=== PATIENT | female | born 1975 | race Caucasian/White ===

== ENCOUNTER → 2022-08-21 | Outpatient (CLI) | payer MEDICARE, SELFPAY ==
[2022-08-21 16:50] LABS: Absolute Lymphocyte Count 3.79 X10^3/uL (0.83-4.51); Absolute Neutrophil Count 5.6 X10^3/uL (2.0-7.7); Basophil# 0.06 X10^3/uL; Basophil% 0.6 % (0-1); Eosinophil# 0.17 X10^3/uL; Eosinophils% 1.6 % (0-5); Hematocrit 46.7 % (37-47); Hemoglobin 15.2 g/dL (12.0-15.0); Lymphocyte # 3.79 X10^3/ul (0.83-4.51); Mean Corp Hgb Conc 32.5 g/dL (32-36); Mean Corpuscular Hgb 28.8 pg (27.0-32.0); Mean Corpuscular Volume 88.6 fL (81-99); Mean Platelet Vol. 10.6 fl (6.2-12.0); Monocyte# 0.85 X10^3/uL; Monocyte% 8.1 % (0-10); NRBC Flagged by Analyzer 0 % (0-5); Neutrophil # 5.63 X10^3/uL (2.7-7.7); Neutrophil % 53.5 % (47-70); Platelet Count 357 K/mm3 (150-450); RBC Distribution Width CV 16.9 % (11.6-14.6); Red Blood Count 5.27 M/mm3 (4.2-5.4); White Blood Count 10.5 K/mm3 (4.4-11.0)
[2022-08-21 16:56] LABS: Ammonia < 10.0 umol/L (11-32)
[2022-08-21 16:57] LABS: Prothrombin Time (Protime)PT. 13.1 SECONDS (11.7-14.9)
[2022-08-21 17:52] LABS: Erythrocyte Sedimentation Rate 29 mm/hr (0-30)
[2022-08-21 17:58] LABS: ALB/GLOB Ratio 0.9 RATIO (0.9-2.4); AST(SGOT) 28 U/L (15-37); Alanine Aminotransfer ALT/SGPT 30 U/L (13-56); Alkaline Phosphatase 160 U/L (45-117); Anion Gap 8 (5-15); BUN 31 mg/dL (7-18); BUN/Creat Ratio 40.8 RATIO (10-20); CRP < 2.90 mg/L (0.0-3.0); Calcium,Total 9.8 mg/dL (8.5-10.1); Chloride 110 mmol/L (98-107); Creatinine, Serum 0.76 mg/dL (0.55-1.02); EST Glomerular Filtration Rate 87 mL/min (>60); Est Glom Filt Rate - Afr Amer 105 mL/min (>60); Ferritin 17 ng/mL (8-252); Globulin 4.4 g/dL (2.2-4.2); Glucose 97 mg/dL (74-106); LDH 223 U/L (84-246); Potassium 3.9 mmol/L (3.5-5.1); Protein, Total 8.4 g/dL (6.4-8.2); Sodium Level 138 mmol/L (136-145)
[2022-08-23 16:09] LABS: Anti-Centromere B Ab <0.2 AI (0.0-0.9); Anti-Chromatin <0.2 AI (0.0-0.9); Anti-Jo <0.2 AI (0.0-0.9); Anti-Mitochondrial AB <20.0 Units (0.0-20.0); Anti-Scleroderma-70 AB <0.2 AI (0.0-0.9); Anti-dsDNA Ab <1 IU/mL (0-9); Endomysial Antibody IgA Negative (Negative); Immunoglobulin A 252 mg/dL (87-352); RNP Ab 0.2 AI (0.0-0.9); SJOGREN'S Anti-SS-A test < 0.2 AI (0.0-0.9); SJOGREN'S Anti-SS-B test < 0.2 AI (0.0-0.9); Smith Ab <0.2 AI (0.0-0.9); t-Transglutaminase IgA <2 U/mL (0-3)
[2022-08-28 15:08] LABS: Pancreatic Elastase, Fecal 298 (>200)
[2022-08-29 10:09] LABS: Albumin 3.9 g/dL (2.9-4.4); Alpha-1-Globulins 0.3 g/dL (0.0-0.4); Angiotensin Convert Enzyme 39 U/L (14-82); Anti-Smooth Muscle ABS 20 Units (0-19); Ceruloplasmin 28.4 mg/dL (19.0-39.0); Copper, Serum or Plasma 132 ug/dL (80-158); Cytoplasmic Ab (C-ANCA) <1:20 titer (Neg:<1:20); Gamma Globulin 1.4 g/dL (0.4-1.8); Haptoglobin 120 mg/dL (42-296); Immunoglobulin A 251 mg/dL (87-352); Immunoglobulin E 16 IU/mL (6-495); Immunoglobulin G 1303 mg/dL (586-1602); Immunoglobulin M 53 mg/dL (26-217); PROEL- TOTAL PROTEIN 7.8 g/dL (6.0-8.5); Perinuclear Ab (P-ANCA) <1:20 titer (Neg:<1:20); Tacrolimus (FK506) 5.2 ng/mL (2.0-20.0)
[2022-09-02 18:07] LABS: Calprotectin, Stool 24 ug/g (0-120)
== END | disposition home or self-care (01) ==
PROVIDERS: Referring Provider Internal Medicine Gastroenterology; Visit Provider Internal Medicine Gastroenterology
DX: K83.01 Primary sclerosing cholangitis (principal); Z94.4 Liver transplant status; K51.90 Ulcerative colitis, unspecified, without complications
CPT/HCPCS: 36415; 80053; 80197; 82140; 82164; 82390; 82525; 82653; 82728; 82784; 82785; 83010; 83516; 83615; 83630; 83993; 84165; 85025; 85610; 85652; 86140; 86225; 86235; 86255; 86256; 86334

== ENCOUNTER → 2022-10-03 | Outpatient (CLI) | payer MEDICARE, SELFPAY ==
--- NOTE | 2022-10-03 09:55 | US_ITS ---
STUDY: ABDOMINAL ULTRASOUND - RIGHT UPPER QUADRANT; ELASTOGRAPHY REASON FOR VISIT: Female, 47 years old. Fatty infiltration of the liver. Colitis. History of prior hepatic transplant. TECHNIQUE: Ultrasound evaluation of the right upper quadrant was performed with real-time and static morales-scale imaging. Point quantification shear wave elastography was performed ([email or web address]). TECHNICAL QUALITY: Adequate. COMPARISON: None. FINDINGS: Liver: The liver is enlarged and measures 18.3 cm. There is increased echogenicity consistent with fatty infiltration. The bile ducts are within normal limits. There is hepatic color flow. The direction of portal flow is hepatopetal. There is no demonstrated mass lesion. Median liver stiffness measured 9.9 kPa. Gallbladder: The patient is status post cholecystectomy. Common Bile Duct (C.B.D.): The common bile duct measures 5.1 mm. Pancreas: There is normal echogenicity of the visualized pancreas. There is no demonstrated pancreatic mass or cyst. Right Kidney: Normal size of the right kidney. The right kidney measures 10.2 cm x 3.7 cm x 4.7 cm. Normal renal cortex. The right cortex measures 1.5 cm. There is no demonstrated renal mass or cyst. There is no right hydronephrosis. US/ABD Limited w/ Elastography IMPRESSION: 1. Liver stiffness measures 9.9 kPa compatible with F2-F3 (Mild to moderate liver fibrosis) Metavir score. Electronically Signed: John Crain MD at 11:07 EDT ,
== END | disposition home or self-care (01) ==
LOC: US 09:55
PROVIDERS: PCP Student in an Organized Health Care Education/Training Program; Referring Provider Internal Medicine Gastroenterology; Visit Provider Internal Medicine Gastroenterology
DX: K83.01 Primary sclerosing cholangitis (principal); Z94.4 Liver transplant status; K51.90 Ulcerative colitis, unspecified, without complications
CPT/HCPCS: 76705; 76981

== ENCOUNTER 2022-11-29 09:02 | Day surgery (SDC) | payer MEDICARE, SELFPAY ==
[2022-11-29 09:39] VITALS: BP 145/96; PULSE 74; RESP 16; TEMP 37.1; O2SAT 97; BMI 42.9
[2022-11-29] MEDS: Lactated Ringers 1,000 ML 15 ML IV (09:39)
--- NOTE | 2022-11-29 09:44 | HP.PCM_ITS ---
History and Physical Date of Admission: 11/29/22 SHWETHA LEMUS, is a 47 F who presents to the office today for PCV OV 08.14.22 to establish care noting complicated history and need to establish with specialists. UC with presence of JPouch; PSC history requiring liver transplant 01.01.21 and maintained on mycophenolate, tacrolimus and t enofovir r/t donor hepatitis exposure. Additionally addressed hypothyroid r/t Kassy?s, HTN, anxiety/depression, Graves. Has medical marijuana. ? Biochemical CBC, CMP without pertinent abnormality. ? AST 24-ALT 28-AP H156 *BGI established 08.21.22. Feels UC symptoms (UC diagnosed age 17, s/p colectomy 2012) are overall well since starting functional medicine doctor; no active symptoms at this time. Established with functional medicine doctor in [place] to lose weight and is doing well with metabolic reset, no sugar, high protein and low fat. Bowels were watery, acidic and painful; has improved. 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 Liver transplant continues to do well; she is establishing with liver transplant team. She has not had recent testing or imaging. Joint pain is common; rheumatoid arthritis. Spleen has atrophied and s/p cholecystectomy. ROS Const Constitutional: No anorexia, fatigue, fever(s), weight change or sleep problems Eyes Eyes: No change in vision ENT ENT: No abnormal hearing, difficulty swallowing, mouth lesions, tongue swelling or throat swelling Resp Respiratory: No cough or shortness of breath Cardio Cardiology: No chest pain at rest, chest pain with exertion, shortness of breath or dyspnea on exertion Gastro GI: No difficulty swallowing Genitourinary-Female: No difficulty urinating or burning urination Musc Musculoskeletal: No joint pain, joint swelling, muscle weakness or decreased muscle mass Skin Skin: No hair loss in leg, yellowing of the eye, itchy eyes, rash, skin ulcer or skin swelling Neuro Neurology: No abnormal hearing, abnormal movements, confusion, unsteady gait/balance or memory loss Psych Psychiatric: No anxiety, No confusion and No memory loss Endo Endocrine: No fatigue or weight change Aller/Imm Allergy/Immunologic: No itchy eyes, throat swelling or tongue swelling Jhony/Lymp Hematologic/Lymphatic: No easy bleeding, easy bruising or enlarged lymph nodes Exam Const General: cooperative and comfortable Nutritional Appearance: average body habitus and well nourished [facility] Head: normal to inspection Ears: hearing grossly normal bilaterally Nose: external nose normal Face and sinus: normal facial exam Mouth: oral mucosae normal Throat: posterior oropharynx normal Eyes General: appearance normal, both eyes and all related structures Neck Neck: normal visual inspection Chest Chest palpation & inspection: normal inspection of the chest and normal palpation of entire chest wall Resp Effort & Inspection: normal respiratory effort Auscultation: Bilateral: Clear to Auscultation Cardio Palpation: normal PMI Rate: regular rate Rhythm: regular rhythm GI Inspection: normal to inspection Auscultation: normal bowel sounds Percussion: normal to percussion Palpation: no hepatosplenomegaly Skin General: no rashes or lesions noted Neuro General: patient alert Extrem General: normal to inspection Psych Affect: normal affect Quality Reporting Tobacco Screening ([facility] 138) Smoking Status: Never smoker Assessment and Plan Assessment and Plan (1) Ulcerative colitis: Status: Chronic (2) Primary sclerosing cholangitis: Status: Chronic (3) Liver transplant status: Status: Chronic Plan: 47-year-old with past medical history of severe suazo ulcerative colitis status post total colectomy with J-pouch anastomosis severe primary sclerosing cholangitis with acute liver failure status post orthotopic liver transplant with hepatitis B on Tacrolimus, mycophenolate and tenofovir. She seems to be stable regarding her ulcerative colitis and she was having frequent stools but she is improving with a very low-carb diet. She is also been losing weight. Her last flexible sigmoidoscopy was approximately 3 to 4 years ago. She has not had any imaging of her liver. She has had episodes of pouchitis which was successfully treated with antibiotic therapy. She does not have any extraintestinal manifestations of ulcerative colitis or primary sclerosing cholangitis that she knows. She will get biochemical work-up including ANCA, OSCAR, ESR, CRP, alpha-fetoprotein, tacrolimus level, CBC, CMP. She will also need an EGD and flexible sigmoidoscopy. Orders: Orders Comprehensive Metabolic Profil Today K51.90 - Ulcerative colitis, unspecified, without complications, K83.01 - Primary sclerosing cholangitis, Z94.4 - Liver transplant status CRP Today K51.90 - Ulcerative colitis, unspecified, without complications, K83.01 - Primary sclerosing cholangitis, Z94.4 - Liver transplant status Ferritin Today K51.90 - Ulcerative colitis, unspecified, without complications, K83.01 - Primary sclerosing cholangitis, Z94.4 - Liver transplant status LDH Today K51.90 - Ulcerative colitis, unspecified, without complications, K83.01 - Primary sclerosing cholangitis, Z94.4 - Liver transplant status Prothrombin Time w/INR Today K51.90 - Ulcerative colitis, unspecified, without complications, K83.01 - Primary sclerosing cholangitis, Z94.4 - Liver transplant status CBC W/Diff, Automated Today K51.90 - Ulcerative colitis, unspecified, without complications, K83.01 - Primary sclerosing cholangitis, Z94.4 - Liver transplant status Erythrocyte Sed Rate Today K51.90 - Ulcerative colitis, unspecified, without complications, K83.01 - Primary sclerosing cholangitis, Z94.4 - Liver transplant status Anti-Mitochondrial AB Today K51. - Ulcerative colitis, unspecified, without complications, K83.01 - Primary sclerosing cholangitis, Z94.4 - Liver transplant status OSCAR Comprehensive Panel Today K51.90 - Ulcerative colitis, unspecified, without complications, K83.01 - Primary sclerosing cholangitis, Z94.4 - Liver transplant status Calprotectin, Stool Today K51.90 - Ulcerative colitis, unspecified, without complications, K83.01 - Primary sclerosing cholangitis, Z94.4 - Liver transplant status Stool Lactoferrin/WBC Today K51.90 - Ulcerative colitis, unspecified, without complications, K83.01 - Primary sclerosing cholangitis, Z94.4 - Liver transplant status Angiotensin Convert Enzyme Today K51.90 - Ulcerative colitis, unspecified, without complications, K83.01 - Primary sclerosing cholangitis, Z94.4 - Liver transplant status ANCA Today K51.90 - Ulcerative colitis, unspecified, without complications, K83.01 - Primary sclerosing cholangitis, Z94.4 - Liver transplant status Anti-Smooth Muscle ABS Today K51. - Ulcerative colitis, unspecified, without complications, K83.01 - Primary sclerosing cholangitis, Z94.4 - Liver transplant status Celiac Disease Profile Today K51.90 - Ulcerative colitis, unspecified, without complications, K83.01 - Primary sclerosing cholangitis, Z94.4 - Liver transplant status Ceruloplasmin Today K51.90 - Ulcerative colitis, unspecified, without complications, K83.01 - Primary sclerosing cholangitis, Z94.4 - Liver transplant status Copper, Serum or Plasma Today K51.90 - Ulcerative colitis, unspecified, without complications, K83.01 - Primary sclerosing cholangitis, Z94.4 - Liver transplant status Immunoglobulins G/A/M/E Today K51.90 - Ulcerative colitis, unspecified, without complications, K83.01 - Primary sclerosing cholangitis, Z94.4 - Liver transplant status Haptoglobin Today K51.90 - Ulcerative colitis, unspecified, without complic ations, K83.01 - Primary sclerosing cholangitis, Z94.4 - Liver transplant status DILMA + Protein Elect, Serum Today K51.90 - Ulcerative colitis, unspecified, without complications, K83.01 - Primary sclerosing cholangitis, Z94.4 - Liver transplant status Miscellaneous Lab Procedure Today K51.90 - Ulcerative colitis, unspecified, without complications, K83.01 - Primary sclerosing cholangitis, Z94.4 - Liver transplant status Miscellaneous Lab Procedure 2 Today K51.90 - Ulcerative colitis, unspecified, without complications, K83.01 - Primary sclerosing cholangitis, Z94.4 - Liver transplant status Miscellaneous Lab Procedure 3 Today K51.90 - Ulcerative colitis, unspecified, without complications, K83.01 - Primary sclerosing cholangitis, Z94.4 - Liver transplant status Ammonia Today K51.90 - Ulcerative colitis, unspecified, without complications, K83.01 - Primary sclerosing cholangitis, Z94.4 - Liver transplant status ABD Limited w/ Elastography Today K51.90 - Ulcerative colitis, unspecified, without complications, K83.01 - Primary sclerosing cholangitis, Z94.4 - Liver transplant status Tacrolimus (Prograf) Today K51.90 - Ulcerative colitis, unspecified, without complications, K83.01 - Primary sclerosing cholangitis, Z94.4 - Liver transplant status Pancreatic Elastase, Fecal Today K51.90 - Ulcerative colitis, unspecified, without complications, K83.01 - Primary sclerosing cholangitis, Z94.4 - Liver transplant status Medications: New Lactobac 2-Bifido 1-S. therm 900 billion cell (VSL#3 DS) 1 packet PO DAILY 20 ea 3RF Coding I have examined the patient and the H&P has been reviewed. There are no clinical changes since date of exam.
--- NOTE | 2022-11-29 10:30 | EGD_PTH ---
PATIENT: SHWETHA LEMUS LOC: EN U#:[id number] AGE/SX: 47/F ROOM: RE11/29/[address]: Dr. Ruel Milner DO : 1975 BED: DIS: 11/29/2022 SPEC #: [id number] RECD: 11/29/22 11:46 STATUS: GERI REYudith #: [id number] SRIDEVI: 11/29/22 10:[address]: Rule Milner DEPT: SURGICAL PATHOLOGY RECD BY: Lena Barbosa ENTERED: 11/29/22 13:13 SP TYPE: EGD BIOPSY OT DR: Dr. Jarod Carpenter DO Tissues: A - Duodenum, NOS B - Gastric mucous membrane C - Gastric mucous membrane D - Esophagus, NOS E - COLON BIOPSY Procedures: Special Stain Group II Surgery Specimen Level IV Alcian Blue/PAS (control) HEADER OPERATION: Colonoscopy, EGD (MAC) and biopsies PRE-OP DIAGNOSIS: History of ulcerative colitis, S/P colectomy, liver transplant status TISSUE SUBMITTED: A - Duodenum biopsy, B - Gastric antrum biopsy and H. pylori, C - Gastric body biopsy, D - Distal esophagus biopsy, E - Anastomosis site biopsy MICROSCOPIC DIAGNOSIS A. Duodenum, biopsy: Fragments of duodenal mucosa with moderate nonspecific chronic inflammation and focal mild villous blunting. B. Gastric antrum, biopsy: Mild gastritis. See microscopic description and comment. C. Gastric body, biopsy: Mild gastritis. See microscopic description. D. Distal esophagus, biopsy: Fragments of gastric mucosa with mild to moderate chronic inflammation. Intestinal metaplasia (goblet cell metaplasia) not identified. See comment. E. Anastomosis site, biopsy: Fragments of small intestinal and colonic mucosa with glandular distortion, chronic inflammation and lymphoid aggregates. See comment. SJ:asif 11/30/2022 COMMENT B. The results of immunohistochemistry for Helicobacter pylori will be reported separately ([id number]). D. Alcian blue/PAS stain with matched control is used in the evaluation of the specimen. E. Cryptitis, crypt abscesses or granulomas are not seen. No evidence of dysplasia. Correlation with clinical, endoscopic findings and appropriate follow up are necessary. MICROSCOPIC DESCRIPTION Slides are reviewed. B & C. The specimen shows fragments of gastric mucosa with chronic inflammatory cell infiltrates in the lamina propria consisting of lymphocytes and plasma cells, consistent with mild chronic gastritis. GROSS DESCRIPTION A - Received in fixative is one container labeled with the patient's name and designated duodenum biopsy. The specimen consists of multiple irregular fragments of light becerra soft tissue that in aggregate measure 1.0 x 0.5 x 0.1 cm. The specimen is totally submitted in one cassette. B - Received in fixative is one container labeled with the patient's name and designated gastric antrum biopsy. The specimen consists of multiple irregular fragments of light becerra soft tissue that in aggregate measure 1.0 x 0.4 x 0.1 cm. The specimen is totally submitted in one cassette. C - Received in fixative is one container labeled with the patient's name and designated gastric body biopsy. The specimen consists of multiple irregular fragments of light becerra soft tissue that in aggregate measure 0.9 x 0.5 x 0.1 cm. The specimen is totally submitted in one cassette. D - Received in fixative is one container labeled with the patient's name and designated distal esophagus. The specimen consists of two irregular fragments of light becerra soft tissue that in aggregate measure 0.8 x 0.4 x 0.1 cm. The specimen is totally submitted in one cassette. E - Received in fixative is one container labeled with the patient's name and designated anastomosis site. The specimen consists of multiple irregular fragments of light becerra soft tissue that in aggregate measure 1.5 x 0.5 x 0.1 cm. The specimen is totally submitted in one cassette. / EMILY:asif 11/29/2022 TC: CPT: 62490 x5, 82384
--- NOTE | 2022-11-29 10:30 | IMM_PTH ---
PATIENT: SHWETHA LEMUS LOC: EN U#:[id number] AGE/SX: 47/F ROOM: RE11/29/[address]: Dr. Ruel Milner DO : 1975 BED: DIS: 11/29/2022 SPEC #: [id number] RECD: 11/29/22 14:03 STATUS: GERI REYudith #: [id number] SRIDEVI: 11/29/22 10:[address]: Ruel Milner DEPT: IMMUNOHISTOCHEMISTRY RECD BY: Gladis Barbosa ENTERED: 11/29/22 14:03 SP TYPE: IMMUNO OTHR DR: Dr. Jarod Carpenter DO Tissues: B - Stomach, NOS Procedures: H Pylori (initial) PHYSICIAN & INSTITUTION [place] [id number] SPECIMEN INFORMATION: Tissue Source: B - Gastric antrum Clinical Info: History of ulcerative colitis S/P colectomy, liver transplant status Specimen Number: [id number] CPT code: 88629 METHODOLOGY: Deparaffinized sections of prefer/formalin-fixed tissue or PAP/DQ stained slides are incubated with monoclonal/polyclonal antibodies/oligonucleotide probes. Localization is made via biotin free immunoperoxidase method. Appropriate controls are performed and reacted as expected. Results on target cell population are indicated in the following table: RESULTS: ANTIBODY / CLONE RESULT Block B H Pylori (polyclonal) negative These tests were developed and their performance characteristics determined by [facility]. They may not have been cleared or approved by the U.S. Food and Drug Administration. The FDA has determined that such clearance or approval is not necessary. The above immunohistochemical/dualISH markers are ordered and reviewed by the Pathologist. INTERPRETATION: B. Gastric antrum, biopsy: Negative for Helicobacter pylori organisms. SJ:asif 11/30/2022
--- NOTE | 2022-11-29 11:23 | OP.CCLET_ITS ---
11/29/2022 Jarod Carpenter Do Re : Upper GI endoscopy procedure for Yanelis Amaya Dear Jayden This procedure was performed on October. My impressions and recommendations are as follows: Impressions : - Z-line irregular, 38 cm from the incisors. - Small hiatal hernia. - Erythematous mucosa in the gastric body and antrum. Biopsied. - Erythematous duodenopathy. Biopsied. Recommendations : - Discharge patient to home. - Resume previous diet. - Continue present medications. - Await pathology results. My findings are described in the full procedure note, which is enclosed. If I can be of further assistance, please feel free to contact me at . Sincerely, Ruel Milner, 11/29/2022 11:22:56 AM This report has been signed electronically.
--- NOTE | 2022-11-29 11:23 | OP.EGD_ITS ---
Patient Name: Yanelis Amaya Procedure Date: 11/29/2022 10:54 AM Date of : 1975 Age: 47 Procedure: Upper GI endoscopy Indications: Epigastric abdominal pain, Dyspepsia, Heartburn Providers: Ruel Milner DO Referring MD: Jarod Carpenter Do Medicines: Monitored Anesthesia Care Patient Profile: This is a 47 year old female. Refer to note in patient chart for documentation of history and physical. Patient has symptoms of chronic dyspepsia, chronic heartburn and chronic nausea. She is status post liver transplant in the distant past. Complications: No immediate complications. Procedure: Pre-Anesthesia Assessment: - Prior to the procedure, a History and Physical was performed, and patient medications and allergies were reviewed. The patient is competent. The risks and benefits of the procedure and the sedation options and risks were discussed with the patient. All questions were answered and informed consent was obtained. Patient identification and proposed procedure were verified by the physician in the pre-procedure area. Mental Status Examination: alert and oriented. Airway Examination: normal oropharyngeal airway and neck mobility. Respiratory Examination: clear to auscultation. CV Examination: normal. Prophylactic Antibiotics: The patient does not require prophylactic antibiotics. Prior Anticoagulants: The patient has taken no anticoagulant or antiplatelet agents. ASA Grade Assessment: II - A patient with mild systemic disease. After reviewing the risks and benefits, the patient was deemed in satisfactory condition to undergo the procedure. The anesthesia plan was to use monitored anesthesia care (MAC). Immediately prior to administration of medications, the patient was re-assessed for adequacy to receive sedatives. The heart rate, respiratory rate, oxygen saturations, blood pressure, adequacy of pulmonary ventilation, and response to care were monitored throughout the procedure. The physical status of the patient was re-assessed after the procedure. After obtaining informed consent, the endoscope was passed under direct vision. Throughout the procedure, the patient's blood pressure, pulse, and oxygen saturations were monitored continuously. The pediatric colonoscope was introduced through the mouth, and advanced to the second part of duodenum. The upper GI endoscopy was accomplished without difficulty. The patient tolerated the procedure well. Scope In: 11:04:14 AM Scope Out: 11:11:26 AM Total Procedure Duration Time 0 hours 7 minutes 12 seconds Findings: The Z-line was irregular and was found 38 cm from the incisors. A small hiatal hernia was present. Patchy mildly erythematous mucosa without bleeding was found in the gastric body and in the gastric antrum. Biopsies were taken with a cold forceps for histology. Verification of patient identification for the specimen was done. Estimated blood loss was minimal. Biopsies were taken with a cold forceps for Helicobacter pylori testing. Verification of patient identification for the specimen was done. Estimated blood loss was minimal. Mildly erythematous mucosa without active bleeding and with no stigmata of bleeding was found in the duodenal bulb. Biopsies were taken with a cold forceps for histology. Verification of patient identification for the specimen was done. Estimated blood loss was minimal. Impression: - Z-line irregular, 38 cm from the incisors. - Small hiatal hernia. - Erythematous mucosa in the gastric body and antrum. Biopsied. - Erythematous duodenopathy. Biopsied. Recommendation: - Discharge patient to home. - Resume previous diet. - Continue present medications. - Await pathology results. Procedure Code(s): --- Professional --- 26869, Esophagogastroduodenoscopy, flexible, transoral; with biopsy, single or multiple CPT copyright 2021 [employer]. All rights reserved. The codes documented in this report are preliminary and upon community relations director review may be revised to meet current compliance requirements. Ruel Milner DO 11/29/2022 11:22:56 AM This report has been signed electronically. Number of Addenda: 0 Note Initiated On: 11/29/2022 10:54 AM
[2022-11-29 11:25] VITALS: BP 122/75; BP 145/96; PULSE 73; RESP 18; TEMP 36.3; O2SAT 94
--- NOTE | 2022-11-29 11:26 | OP.CCLET_ITS ---
11/29/2022 Jarod Carpenter Do Re : Colonoscopy procedure for Yanelis Amaya Dear Jayden This procedure was performed on October. My impressions and recommendations are as follows: Impressions : - Preparation of the colon was fair. - Patent end-to-end ileo-anal anastomosis, characterized by erythema, friable mucosa, an intact staple line and visible sutures. Biopsied. Recommendations : - Discharge patient to home. - Resume previous diet. - Continue present medications. - Await pathology results. - Repeat colonoscopy in 2 years to assess disease activity. My findings are described in the full procedure note, which is enclosed. If I can be of further assistance, please feel free to contact me at . Sincerely, Ruel Milner, 11/29/2022 11:26:05 AM This report has been signed electronically.
--- NOTE | 2022-11-29 11:26 | OP.COLON_ITS ---
Patient Name: Yanelis Amaya Procedure Date: 11/29/2022 11:11 AM Date of : 1975 Age: 47 Procedure: Colonoscopy Indications: Follow-up of chronic ulcerative pancolitis Providers: Ruel Milner DO Referring MD: Jarod Carpenter Do Medicines: Monitored Anesthesia Care Patient Profile: This is a 47 year old female. Refer to note in patient chart for documentation of history and physical. Patient has symptoms of chronic dyspepsia, chronic heartburn and chronic nausea. She is status post liver transplant in the distant past. Last Colonoscopy: date unknown. Unable to locate last colonoscopy report. Complications: No immediate complications. Procedure: Pre-Anesthesia Assessment: - Prior to the procedure, a History and Physical was performed, and patient medications and allergies were reviewed. The patient is competent. The risks and benefits of the procedure and the sedation options and risks were discussed with the patient. All questions were answered and informed consent was obtained. Patient identification and proposed procedure were verified by the physician in the pre-procedure area. Mental Status Examination: alert and oriented. Airway Examination: normal oropharyngeal airway and neck mobility. Respiratory Examination: clear to auscultation. CV Examination: normal. Prophylactic Antibiotics: The patient does not require prophylactic antibiotics. Prior Anticoagulants: The patient has taken no anticoagulant or antiplatelet agents. ASA Grade Assessment: II - A patient with mild systemic disease. After reviewing the risks and benefits, the patient was deemed in satisfactory condition to undergo the procedure. The anesthesia plan was to use monitored anesthesia care (MAC). Immediately prior to administration of medications, the patient was re-assessed for adequacy to receive sedatives. The heart rate, respiratory rate, oxygen saturations, blood pressure, adequacy of pulmonary ventilation, and response to care were monitored throughout the procedure. The physical status of the patient was re-assessed after the procedure. After I obtained informed consent, the scope was passed under direct vision. Throughout the procedure, the patient's blood pressure, pulse, and oxygen saturations were monitored continuously. The pediatric colonoscope was introduced through the anus and advanced to the terminal ileum. The colonoscopy was performed without difficulty. The patient tolerated the procedure well. The quality of the bowel preparation was fair. The terminal ileum was photographed. Scope In: 11:14:04 AM Scope Out: 11:17:38 AM Total Procedure Duration Time 0 hours 3 minutes 34 seconds Findings: The perianal and digital rectal examinations were normal. There was evidence of a prior end-to-end ileo-anal anastomosis in the rectum. This was patent and was characterized by erythema, friable mucosa, an intact staple line and visible sutures. The anastomosis was traversed. Biopsies were taken with a cold forceps for histology. Verification of patient identification for the specimen was done. Estimated blood loss was minimal. Impression: - Preparation of the colon was fair. - Patent end-to-end ileo-anal anastomosis, characterized by erythema, friable mucosa, an intact staple line and visible sutures. Biopsied. Recommendation: - Discharge patient to home. - Resume previous diet. - Continue present medications. - Await pathology results. - Repeat colonoscopy in 2 years to assess disease activity. Procedure Code(s): --- Professional --- 04728, Colonoscopy, flexible; with biopsy, single or multiple CPT copyright 2021 [employer]. All rights reserved. The codes documented in this report are preliminary and upon swamper review may be revised to meet current compliance requirements. Ruel Milner DO 11/29/2022 11:26:05 AM This report has been signed electronically. Number of Addenda: 0 Note Initiated On: 11/29/2022 11:11 AM
[2022-11-29 11:30] VITALS: BP 127/76; BP 145/96; PULSE 72; RESP 16; O2SAT 94
[2022-11-29 11:35] VITALS: BP 125/84; BP 145/96; PULSE 71; RESP 18; O2SAT 94
[2022-11-29 11:40] VITALS: BP 125/84; BP 145/96; PULSE 69; RESP 18; TEMP 36.3; O2SAT 97
[2022-11-29 11:55] VITALS: BP 145/96
== END 2022-11-29 12:19 | disposition home or self-care (01) ==
LOC: EN 09:03 → AC 09:25
PROVIDERS: PCP Student in an Organized Health Care Education/Training Program; Referring Provider Student in an Organized Health Care Education/Training Program; Visit Provider Internal Medicine Gastroenterology
PROC: 0DJD8ZZ Inspection of Lower Intestinal Tract, Via Natural or Artificial Opening Endoscopic (ICD-10-PCS; CPT 45378; principal; 2022-11-29 10:25)
DX: K44.9 Diaphragmatic hernia without obstruction or gangrene (principal); Z94.4 Liver transplant status; K51.90 Ulcerative colitis, unspecified, without complications; R10.13 Epigastric pain; K83.01 Primary sclerosing cholangitis; K29.70 Gastritis, unspecified, without bleeding
CPT/HCPCS: 43239; 45380; 88305; 88313; 88342; J7120; J2405

== ENCOUNTER → 2023-01-01 | Outpatient (CLI) | payer MEDICARE, SELFPAY ==
[2023-01-01 13:18] LABS: T4 Free Direct 0.87 ng/dL (0.76-1.46); Thyroid Stim Hormone (TSH) 1.93 uIU/mL (0.358-3.74)
[2023-01-02 08:11] LABS: Thyroid Peroxidase AB 12 IU/mL (0-34)
== END | disposition home or self-care (01) ==
LOC: LAB 11:52
PROVIDERS: PCP Student in an Organized Health Care Education/Training Program; Referring Provider Internal Medicine Endocrinology, Diabetes & Metabolism; Visit Provider Internal Medicine Endocrinology, Diabetes & Metabolism
DX: E03.8 Other specified hypothyroidism (principal); E06.3 Autoimmune thyroiditis
CPT/HCPCS: 36415; 84439; 84443; 86376

== ENCOUNTER 2023-07-05 15:15 | Outpatient (CLI) | payer MEDICARE, SELFPAY ==
[2023-07-05 16:39] LABS: Erythrocyte Sedimentation Rate 34 mm/hr (0-30)
[2023-07-05 17:05] LABS: CRP < 2.90 mg/L (0.0-3.0); Estradiol 14.3 pg/mL; Follicle Stimulating Hormone 66.2 mIU/mL; Free T3 2.5 pg/mL (2.18-3.98); Luteinizing Hormone 41.3 mIU/mL; T4 Free Direct 0.86 ng/dL (0.76-1.46); Thyroid Stim Hormone (TSH) 2.26 uIU/mL (0.358-3.74)
[2023-07-05 17:20] LABS: Progesterone Level < 0.21 ng/mL (See Comment)
[2023-07-12 09:09] LABS: Aldosterone, Serum 18.9 ng/dL (0.0-30.0); Anti-Parietal Cell AB, QN 4.3 Units (0.0-20.0); Cytoplasmic Ab (C-ANCA) <1:20 titer (Neg:<1:20); Dopamine, Pl <30 pg/mL (0-48); Epinephrine, Pl <15 pg/mL (0-62); Estrogen, Total, Serum 136 pg/mL (.); Gastrin, Serum 146 pg/mL (0-115); Norepinephrine, Pl 826 pg/mL (0-874); Perinuclear Ab (P-ANCA) <1:20 titer (Neg:<1:20); Testosterone, Free 0.31 ng/dL (0.10-0.85); Testosterone, Total 13 ng/dL (4-50)
[2023-07-12 12:09] LABS: Anti-Centromere B Ab <0.2 AI (0.0-0.9); Anti-Chromatin <0.2 AI (0.0-0.9); Anti-Jo <0.2 AI (0.0-0.9); Anti-Scleroderma-70 AB <0.2 AI (0.0-0.9); Anti-dsDNA Ab <1 IU/mL (0-9); Beef 0.18 kU/L (Class 0/I); Chocolate <0.10 kU/L (Class 0); Codfish <0.10 kU/L (Class 0); Corn <0.10 kU/L (Class 0); Egg, Whole <0.10 kU/L (Class 0); Milk (Cow) 0.23 kU/L (Class 0/I); Mussels <0.10 kU/L (Class 0); Peanut <0.10 kU/L (Class 0); Pork <0.10 kU/L (Class 0); RNP Ab 0.2 AI (0.0-0.9); SJOGREN'S Anti-SS-A test < 0.2 AI (0.0-0.9); SJOGREN'S Anti-SS-B test < 0.2 AI (0.0-0.9); Salmon <0.10 kU/L (Class 0); Shrimp <0.10 kU/L (Class 0); Smith Ab <0.2 AI (0.0-0.9); Soybean <0.10 kU/L (Class 0); Tuna <0.10 kU/L (Class 0); Wheat <0.10 kU/L (Class 0)
== END 2023-07-05 23:59 | disposition home or self-care (01) ==
PROVIDERS: PCP Student in an Organized Health Care Education/Training Program; Referring Provider Internal Medicine Gastroenterology; Visit Provider Internal Medicine Gastroenterology
DX: R94.6 Abnormal results of thyroid function studies (principal); E66.9 Obesity, unspecified; T78.40XA Allergy, unspecified, initial encounter
CPT/HCPCS: 36415; 82088; 82384; 82533; 82670; 82672; 82941; 83001; 83002; 83516; 84144; 84402; 84403; 84439; 84443; 84481; 85652; 86003; 86005; 86140; 86225; 86235; 86256; 86340

== ENCOUNTER → 2023-07-09 | Outpatient (CLI) | payer MEDICARE, SELFPAY ==
[2023-07-16 02:07] LABS: Dopamine, 24Ur 483 ug/24 hr (0-510); Dopamine, UR 193 ug/L (Undefined); Epinephrine, 24Ur < 8 ug/24 hr (0-20); Epinephrine, Ur < 3 ug/L (Undefined); Norepinephrine, 24Ur 175 ug/24 hr (0-135); Norepinephrine, Ur 70 ug/L (Undefined)
== END | disposition home or self-care (01) ==
LOC: LABSPEC 17:14
PROVIDERS: PCP Student in an Organized Health Care Education/Training Program; Referring Provider Internal Medicine Gastroenterology; Visit Provider Internal Medicine Gastroenterology
DX: E66.9 Obesity, unspecified (principal); R94.6 Abnormal results of thyroid function studies
CPT/HCPCS: 81050; 82384

== ENCOUNTER → 2023-07-17 | Outpatient (CLI) | payer MEDICARE, SELFPAY ==
--- NOTE | 2023-07-17 08:07 | US_ITS ---
STUDY: ABDOMINAL ULTRASOUND - RIGHT UPPER QUADRANT; ELASTOGRAPHY REASON FOR VISIT: Female, 48 years old. Fatty infiltration liver. Status post liver transplantation. TECHNIQUE: Ultrasound evaluation of the right upper quadrant was performed with real-time and static morales-scale imaging. Point quantification shear wave elastography was performed ([employer]). TECHNICAL QUALITY: Adequate. COMPARISON: Comparison is made with prior study October 03, 2022. FINDINGS: Liver: The liver is enlarged and measures 18.5 cm. There is increased echogenicity consistent with fatty infiltration. The bile ducts are within normal limits. There is hepatic color flow. The direction of portal flow is hepatopetal. There is no demonstrated mass lesion. Median liver stiffness measured 9.1 kPa. Gallbladder: The patient is status post cholecystectomy. Common Bile Duct (C.B.D.): The common bile duct measures 5.2 mm. Pancreas: There is normal echogenicity of the visualized pancreas. There is no demonstrated pancreatic mass or cyst. Right Kidney: Normal size of the right kidney. The right kidney measures 10.5 cm x 4.6 cm x 4.5 cm. Normal renal cortex. The right cortex measures 1.3 cm. There is no demonstrated renal mass or cyst. There is no right hydronephrosis. US/Abdomen Complete IMPRESSION: 1. Liver stiffness measures 9.1 kPa compatible with F2-F3 (Mild to moderate liver fibrosis) Metavir score. Electronically Signed: John Crain MD at 15:43 EDT ,
== END | disposition home or self-care (01) ==
PROVIDERS: PCP Student in an Organized Health Care Education/Training Program; Referring Provider Internal Medicine Gastroenterology; Visit Provider Internal Medicine Gastroenterology
DX: R94.6 Abnormal results of thyroid function studies (principal); E66.9 Obesity, unspecified; K75.81 Nonalcoholic steatohepatitis (NASH)
CPT/HCPCS: 76700; 76981

== ENCOUNTER → 2023-08-13 | Outpatient (CLI) | payer MEDICARE, SELFPAY ==
--- NOTE | 2023-08-13 10:00 | PET_ITS ---
EXAMINATION: Ga68 DOTATATE PET/CT INDICATIONS: A 48-year-old female with a history of carcinoid neoplasia presenting for restaging examination. COMPARISON EXAMINATION: None available. TECHNIQUE: Following the intravenous administration of 5.14 mCi of Ga68 DOTATATE via the right hand, multiplanar image acquisitions of the head, neck, chest, abdomen and pelvis to level of the proximal-mid thigh bilaterally were obtained. High resolution thin slices (1.25-mm) were acquired for reconstruction with isotropic voxel resolution in multiple orthogonal planes. THE KRENNING SCORING SYSTEM: 0-No Uptake; 1-Very Low radiopharmaceutical concentration; 2-? to liver; 3-> liver; 4->spleen. (Natalie et al., [employer] Journal [employer] Gastroenter[employer], Hepatology 31:S219 1998). SUV Reference values: Liver: 14.9 Spleen: 19.2 HEIGHT: 67 inches WEIGHT: 315 pounds. FINDINGS: Head/Neck: There is physiologic distribution of the radiopharmaceutical noted in the bilateral parotid and submandibular glands, normal visualization of the right-left thyroid colloid. There is demonstration of the pineal gland in the midline skull base. No definitive scintigraphic abnormalities are defined. CHEST: There is no quantitative scintigraphic evidence of abnormal increased glucose metabolism within the context of the bilateral hemithorax pulmonary parenchyma, right and left hemithoracic pleural interface, mediastinal structures and thoracic perihilum.? Pertinent chest CT findings are as follows. There are no parenchymal densities-nodules defined in the right and left hemithorax with quantitatively significant increased radiopharmaceutical concentration. Bilateral axillary soft tissue densities are ametabolic. Scattered mediastinal soft tissue reveals no evidence of increased tracer uptake. Abdomen/Pelvis: Physiologic tracer uptake is noted in the hepatic and splenic parenchyma, visualized intestinal tract, urinary bladder, adrenal glands, and bilateral renal units. Review of CT of the abdomen and pelvis reveals the following. Apparent post procedural change is noted in the lower pelvic mesentery. The gallbladder is surgically absent. Skeletal: There is no visualized sclerotic-lytic changes manifest on review of the appendicular-axial skeletal structures. PET/PET/CT Tumor Base -Thigh Init IMPRESSION: 1. NEGATIVE EXAMINATION. There is no definitive quantitative scintigraphic evidence of somatostatin receptor evident viable neoplastic disease. Electronic Signature Rodriguez Roman D.O. Accurate Quantification of SUVs and standardized KRENNING scores for this report are calculated using the exclusive [employer], ([place] Patent No. [id number] [id number] [phone] [phone] [place] patent [phone] ). Standardization and correction of the FDG SUV metric exclusively available with [employer] intellectual property, allow for vendor non-specific objective quantitative sequential FDG PET-CT comparison and otherwise unobtainable optimization of the sensitivity and specificity of the examination. [email or web address] Electronically Signed: Rodriguez Roman DO at 23:53 EDT ,
== END | disposition home or self-care (01) ==
PROVIDERS: PCP Student in an Organized Health Care Education/Training Program; Referring Provider Internal Medicine Gastroenterology; Visit Provider Internal Medicine Gastroenterology
DX: R77.9 Abnormality of plasma protein, unspecified (principal)
CPT/HCPCS: 78815; A9587